=== PATIENT | female | born 1995 | race Caucasian/White ===

== ENCOUNTER 2020-08-06 16:24 | Emergency (ER) | payer OTHER ==
[~2020-08-06] VITALS: Ht 129.5 cm; Wt 57.2 kg
[2020-08-06] MEDS ORDERED: PRENATABS FA T1 EACH (16:35)
== END 2020-08-06 22:43 | disposition home or self-care (01) ==
LOC: ER 16:24
DX: O26.52 Maternal hypotension syndrome, second trimester (principal); O30.012 Twin pregnancy, monochorionic/monoamniotic, second trimester; O26.892 Other specified pregnancy related conditions, second trimester; E86.0 Dehydration; R42 Dizziness and giddiness; Z03.818 Encounter for observation for suspected exposure to other biological agents ruled out; Z3A.14 14 weeks gestation of pregnancy

== ENCOUNTER → 2020-09-18 | Outpatient (CLI) | payer OTHER ==
[~2020-09-18] MED LIST: ADULT LOW DOSE81 M1 PO; MACRODANTIN100 M1 PO; PRENATABS FA T1 EACH
== END | disposition home or self-care (01) ==
LOC: PRENATAL 08:57
PROVIDERS: ATTEND Obstetrics & Gynecology Maternal & Fetal Medicine
DX: O35.0XX2 Maternal care for (suspected) central nervous system malformation in fetus, fetus 2 (principal); O60.02 Preterm labor without delivery, second trimester; O30.92 Multiple gestation, unspecified, second trimester; O35.3XX2 Maternal care for (suspected) damage to fetus from viral disease in mother, fetus 2; O26.872 Cervical shortening, second trimester; Z36.89 Encounter for other specified antenatal screening; Z3A.19 19 weeks gestation of pregnancy

== ENCOUNTER 2020-09-29 15:40 | Emergency (ER) | payer OTHER ==
[~2020-09-29] VITALS: Ht 160 cm; Wt 58.1 kg
[~2020-09-29 15:40] MED LIST changes: -ADULT LOW DOSE81 M1 PO; -MACRODANTIN100 M1 PO
[2020-09-29] MEDS ORDERED: ADULT LOW DOSE81 M1 PO (16:27)
[2020-09-29] MEDS ORDERED: MACRODANTIN100 M1 PO (23:59)
== END 2020-09-30 00:23 | disposition home or self-care (01) ==
LOC: ER 15:40
DX: O23.32 Infections of other parts of urinary tract in pregnancy, second trimester (principal); Z3A.21 21 weeks gestation of pregnancy; Z03.818 Encounter for observation for suspected exposure to other biological agents ruled out

== ENCOUNTER → 2020-10-16 | Outpatient (CLI) | payer OTHER ==
[~2020-10-16] MED LIST changes: +ADULT LOW DOSE81 M1 PO; +MACRODANTIN100 M1 PO
== END | disposition home or self-care (01) ==
LOC: PRENATAL 10:48
PROVIDERS: ATTEND Obstetrics & Gynecology Maternal & Fetal Medicine
DX: O26.843 Uterine size-date discrepancy, third trimester (principal); O26.873 Cervical shortening, third trimester; O30.93 Multiple gestation, unspecified, third trimester; Z36.89 Encounter for other specified antenatal screening; Z3A.28 28 weeks gestation of pregnancy

== ENCOUNTER 2020-11-16 00:23 | Inpatient (IN) | payer OTHER ==
[~2020-11-16] VITALS: Ht 160 cm; Wt 1.8 kg
== END 2021-01-14 13:31 | disposition home or self-care (01) | DRG 787 ==
LOC: OB/GYN 00:23 → LDR 00:23 → OB/GYN 11-19 08:38
PROVIDERS: ADMIT Specialist; ATTEND Specialist
PROC: 4A1HXFZ Monitoring of Products of Conception, Cardiac Rhythm, External Approach (ICD-10-PCS; 2020-11-16)
PROC: BY4DZZZ Ultrasonography of Second Trimester, Multiple Gestation (ICD-10-PCS; 2020-11-16)
PROC: 10D00Z1 Extraction of Products of Conception, Low, Open Approach (ICD-10-PCS; principal; 2021-01-11 07:00)
DX: O60.13X2 Preterm labor second trimester with preterm delivery third trimester, fetus 2 (principal); O60.13X1 Preterm labor second trimester with preterm delivery third trimester, fetus 1; O26.872 Cervical shortening, second trimester; O23.42 Unspecified infection of urinary tract in pregnancy, second trimester; O99.112 Other diseases of the blood and blood-forming organs and certain disorders involving the immune mechanism complicating pregnancy, second trimester; D68.61 Antiphospholipid syndrome; O99.012 Anemia complicating pregnancy, second trimester; D64.9 Anemia, unspecified; O30.012 Twin pregnancy, monochorionic/monoamniotic, second trimester; Z3A.27 27 weeks gestation of pregnancy; Z37.2 Twins, both liveborn; Z20.822 Contact with and (suspected) exposure to COVID-19